=== PATIENT | male | born 1990 | race African-American/Black ===

== ENCOUNTER 2018-06-06 16:32 | Emergency (ER) | payer SELFPAY ==
[~2018-06-06] VITALS: Ht 188 cm; Wt 125.0 kg
[2018-06-06] MEDS ORDERED: LIDOCAINE HCL/PF 1% 10 MG/ML 5ML VIAL IJ ONE (19:45)
[2018-06-06] MEDS ORDERED: BACITRACIN ZINC OINT UDPKT TOP ONE (19:45)
[2018-06-06 21:09] VITALS: BP 129/77
== END 2018-06-06 21:14 | disposition home or self-care (01) ==
LOC: ER 16:32
DX: L03.012 Cellulitis of left finger (principal); F12.10 Cannabis abuse, uncomplicated
CPT/HCPCS: 10060; 87070; 87077; 87205; 99283; A4217; J3490; Z7610